=== PATIENT | male | born 1985 | race Caucasian/White ===

== ENCOUNTER 2024-11-12 13:40 | Outpatient (CLI) | payer BC, SELFPAY | END 2024-11-12 13:41 | disposition home or self-care (01) | LOC: NFLDREF 11-14 23:37 | PROVIDERS: Visit Provider Physician Assistant | DX: L03.818 Cellulitis of other sites (principal) | CPT/HCPCS: 87070; 87181 ==

== ENCOUNTER 2024-11-30 09:36 | Outpatient (CLI) | payer BC, SELFPAY | END 2024-11-30 09:37 | disposition home or self-care (01) | PROVIDERS: Visit Provider Family Medicine | DX: Z13.228 Encounter for screening for other metabolic disorders (principal); Z13.6 Encounter for screening for cardiovascular disorders | CPT/HCPCS: 80048; 80061 ==